=== PATIENT | male | born 1985 | race Caucasian/White ===

== ENCOUNTER 2020-12-04 14:02 | Emergency (ER) | payer OTHER ==
[~2020-12-04] VITALS: Ht 175.3 cm; Wt 81.6 kg
[2020-12-04] MEDS ORDERED: DICLOFENAC SODI75 MG PO (19:03)
== END 2020-12-04 19:28 | disposition home or self-care (01) ==
LOC: ER 14:02
DX: F41.0 Panic disorder [episodic paroxysmal anxiety] (principal); M25.572 Pain in left ankle and joints of left foot; Z03.818 Encounter for observation for suspected exposure to other biological agents ruled out

== ENCOUNTER 2023-05-01 18:35 | Emergency (ER) | payer OTHER ==
[~2023-05-01] VITALS: Ht 172.7 cm; Wt 72.6 kg
[~2023-05-01 18:35] MED LIST: DICLOFENAC SODI75 MG PO
[2023-05-01] MEDS ORDERED: CLONAZEPAM1 MG PO (19:05)
[2023-05-01] MEDS ORDERED: FAMOTIDINE/PF 20 MG in 0.9 % SODIUM CHLORIDE 8 ML IV PUSH STA (19:59)
[2023-05-01] MEDS ORDERED: LORazepam 2 MG/ML VIAL IV ONE (20:00)
[2023-05-01] MEDS ORDERED: ONDANSETRON HCL 2 MG/ML VIAL IV ONE (20:00)
[2023-05-01] MEDS ORDERED: KETOROLAC TROMETHAMINE 30 MG VIAL IV ONE (20:00)
[2023-05-01 20:50] LABS: HEMATOCRIT 42.7 % (39.0-48.0); MEAN CELL VOLUME 94.8 fL (80.0-100.00); MEAN CORPUSCULAR HEMOGLOBIN 33.4 pg (27.00-32.0); MEAN CORPUSCULAR HGB CONC 35.2 g/dl (32.0-36.0); PLATELET COUNT 278 K/uL (150-450); RED CELL DISTRIBUTION WIDTH 13.2 % (11.5-14.5)
[2023-05-01] MEDS ORDERED: 0.9 % SODIUM CHLORIDE 1,000 ML IV SCH (21:15)
[2023-05-01 21:19] LABS: ALBUMIN 4.2 gm/dL (3.4-5.0); BILIRUBIN TOTAL 0.85 mg/dL (0.3-1.2); BILIRUBIN,CONJUGATED 0.25 mg/dL (0.0-0.2); BILIRUBIN,UNCONJUGATED 0.6 mg/dL (0.0-0.6); CALCIUM 9.6 mg/dL (8.5-10.1); CREATININE SERUM 0.9 mg/dL (0.70-1.30); GFR 93.94; POTASSIUM 3.48 mEq/L (3.5-5.1); TOTAL PROTEIN 8.2 gm/dL (6.4-8.2)
[2023-05-01] MEDS ORDERED: PEPCID AC20 MG PO (22:16)
[2023-05-01] MEDS ORDERED: ZOFRAN8 MG PO (22:16)
[2023-05-02] MEDS ORDERED: RESTORIL30 MG (07:37)
[2023-05-02] MEDS ORDERED: ALPRAZOLAM XR2 MG (07:37)
== END 2023-05-01 22:34 | disposition home or self-care (01) ==
LOC: ER 18:35
PROVIDERS: General Practice
DX: K52.9 Noninfective gastroenteritis and colitis, unspecified (principal); I10 Essential (primary) hypertension

== ENCOUNTER 2023-05-02 07:28 | Emergency (ER) | payer OTHER ==
[~2023-05-02] VITALS: Ht 172.7 cm; Wt 72.6 kg
[~2023-05-02 07:28] MED LIST changes: +CLONAZEPAM1 MG PO; +PEPCID AC20 MG PO; +ZOFRAN8 MG PO
[2023-05-02] MEDS ORDERED: ALPRAZOLAM XR2 MG (07:37)
[2023-05-02] MEDS ORDERED: RESTORIL30 MG (07:37)
[2023-05-02] MEDS ORDERED: 0.9 % SODIUM CHLORIDE 1,000 ML IV STA (08:26)
[2023-05-02] MEDS ORDERED: LORazepam 2 MG/ML VIAL IM ONE (08:30)
[2023-05-02] MEDS ORDERED: FAMOTIDINE/PF 20 MG in 0.9 % SODIUM CHLORIDE 8 ML IV PUSH STA (08:38)
[2023-05-02] MEDS ORDERED: MEPERIDINE HCL/PF 25 MG/ML VIAL IV ONE (08:45)
[2023-05-02] MEDS ORDERED: MEPERIDINE HCL/PF 50 MG/ML VIAL IM ONE (09:15)
[2023-05-02 09:23] LABS: HEMATOCRIT 41.7 % (39.0-48.0); HEMOGLOBIN 14.8 g/dL (13-16.00); MEAN CELL VOLUME 94.7 fL (80.0-100.00); MEAN CORPUSCULAR HEMOGLOBIN 33.6 pg (27.00-32.0); MEAN CORPUSCULAR HGB CONC 35.5 g/dl (32.0-36.0); PLATELET COUNT 272 K/uL (150-450); RED CELL DISTRIBUTION WIDTH 13.4 % (11.5-14.5)
[2023-05-02 09:37] LABS: CALCIUM 9.4 mg/dL (8.5-10.1); CREATININE SERUM 0.87 mg/dL (0.70-1.30); GFR 97.69; POTASSIUM 3.11 mEq/L (3.5-5.1)
[2023-05-02] MEDS ORDERED: cloNIDine HCL 0.2 MG TABLET PO ONE (12:30)
== END 2023-05-02 15:07 | disposition home or self-care (01) ==
LOC: ER 07:28
PROVIDERS: Emergency Medicine
DX: K52.89 Other specified noninfective gastroenteritis and colitis (principal); R10.9 Unspecified abdominal pain